=== PATIENT | female | born 2000 | race African-American/Black ===

== ENCOUNTER 2022-09-08 16:33 | Outpatient (CLI) | payer MEDICAID, SELFPAY ==
[2022-09-08 17:30] LABS: Chloride* 110 mmol/L (96-114); Sodium* 141 mmol/L (135-149)
[2022-09-08 17:32] LABS: Creatinine* 0.6 mg/dL (0.5-1.5); Estimated Glomerular Filt Rate 128 ml/min
[2022-09-08 17:33] LABS: Blood Urea Nitrogen* 15 mg/dL (5-24); Carbon Dioxide* 24 mmol/L (20-32); Glucose* 101 mg/dL (60-115)
[2022-09-08 17:34] LABS: Calcium* 8.7 mg/dL (8.4-10.6)
[2022-09-08 18:54] LABS: Ferritin* 9.5 ng/mL (6.24-137.0)
== END 2022-09-08 16:34 | disposition home or self-care (01) ==
PROVIDERS: Visit Provider Family Medicine
DX: R63.5 Abnormal weight gain (principal); D62 Acute posthemorrhagic anemia
CPT/HCPCS: 80048; 82728; 84443

== ENCOUNTER 2023-09-11 18:18 | Outpatient (CLI) | payer MEDICAID, SELFPAY ==
[2023-09-11 21:59] LABS: Chlamydia DNA Amplified* Not Detected (No Detected); GC DNA Amplified* Not Detected (No Detected)
== END 2023-09-11 18:19 | disposition home or self-care (01) ==
PROVIDERS: Visit Provider Registered Nurse
DX: Z11.3 Encounter for screening for infections with a predominantly sexual mode of transmission (principal); Z13.29 Encounter for screening for other suspected endocrine disorder; Z13.220 Encounter for screening for lipoid disorders
CPT/HCPCS: 80061; 84443; 86592; 86703; 86803; 87340; 87491; 87591